=== PATIENT | female | born 1955 | race Caucasian/White ===

== ENCOUNTER → 2022-07-25 | Outpatient (CLI) | payer MEDICARE, OTHER ==
[~2022-07-25] MED LIST: Calcium + Vita1 EACH PO; FOLI400; IMMUPLEX; MAGNESIUM100 MG PO; Multiple Vitam1 EAC1 PO; OMEGA 3-6-9 CO400 MG PO; PROBIOTIC-DIGE1 EACH PO; [UNRECOGNIZED DRUG - OTHER]
== END | disposition home or self-care (01) ==
LOC: LAB SHORT 12:16 → PLD 12:16
DX: D48.5 Neoplasm of uncertain behavior of skin (principal)
CPT/HCPCS: 88305

== ENCOUNTER → 2024-06-02 | Outpatient (CLI) | payer MEDICARE, OTHER ==
[2024-06-03 10:34] LABS: Stool Occult Bld Immuno 1 Negative (NEGATIVE)
== END ==
LOC: LAB SHORT 15:40 → LAB 15:40 → LAB FUT 04-03 12:00
PROVIDERS: Nurse Practitioner Family
DX: E78.5 Hyperlipidemia, unspecified (principal); R79.89 Other specified abnormal findings of blood chemistry; Z12.11 Encounter for screening for malignant neoplasm of colon
CPT/HCPCS: 82274